=== PATIENT | female | born 2005 | race Caucasian/White ===

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

== ENCOUNTER 2024-08-14 10:48 | Emergency (ER) | payer OTHER ==
[~2024-08-14] VITALS: Ht 152.4 cm; Wt 68.0 kg
[2024-08-14] MEDS ORDERED: Diphth,Pertuss(Acell),Tet Vac 0.5 ML VIAL IM ONE (11:25)
[2024-08-14] MEDS ORDERED: MethylPREDNISolone Sod Succ 125 MG Vial IV ONE (11:30)
[2024-08-14] MEDS ORDERED: DiphenhydrAMINE HCl 50 MG/ML 1ML Vial IV ONE (11:30)
[2024-08-14] MEDS ORDERED: Famotidine 10 MG/ML 2ML Vial IV ONE (11:30)
[2024-08-14 12:14] VITALS: BP 125/73
[2024-08-14] MEDS ORDERED: FAMO20 PO (12:24)
[2024-08-14] MEDS ORDERED: PRED20 PO (12:24)
[2024-08-14] MEDS ORDERED: BENADRYL25 M1 PO (12:24)
== END 2024-08-14 12:30 | disposition home or self-care (01) ==
LOC: ER 10:48
DX: T63.481A Toxic effect of venom of other arthropod, accidental (unintentional), initial encounter (principal); F17.200 Nicotine dependence, unspecified, uncomplicated; W57.XXXA Bitten or stung by nonvenomous insect and other nonvenomous arthropods, initial encounter
CPT/HCPCS: 90471; 90715; 96374; 96375; 99282-25; J1200; J2919